=== PATIENT | male | born 1985 | race African-American/Black ===

== ENCOUNTER 2023-04-24 11:27 | Emergency (ER) | payer BC ==
[2023-04-24 13:26] LABS: #Eosinphils 0.2 10x3/uL (0.0-0.5); #Monocytes 0.4 10x3/uL (0.0-1.1); #Neutrophils 2.9 10x3/uL (1.5-8.4); %Basophils 0.4 % (0.0-2.0); %Eosinophils 3.1 % (0.0-6.0); %Lymphocytes 31.3 % (18.0-47.0); Hematocrit 41.6 % (38.8-50.0); Hemoglobin 13.3 g/dL (13.5-17.5); Mean Corpuscular Hemoglobin 27.8 pg (27.0-33.0); Mean Corpuscular Volume 86.8 fl (81.2-95.1); Mean Platelet Volume 9.2 fl (7.4-10.4); Platelet Count 360 10x3/uL (150-450); RBC Distribution Width 12.9 % (11.5-14.5); Red Blood Cell (RBC) Count 4.79 10x6/uL (4.32-5.72); White Blood Cell (WBC) Count 5.1 10x3/uL (3.5-10.5)
[2023-04-24] MEDS ORDERED: Aspirin 325 MG TAB ONE (13:29)
[2023-04-24 13:38] LABS: ALT (SGPT) 28 U/L (8-55); AST (SGOT) 37 U/L (5-34); Albumin 4.2 g/dL (3.5-5.0); Alkaline Phosphatase 83 U/L (40-110); Anion Gap 14 mmol/L (10-20); BUN (Urea Nitrogen) 11 mg/dL (8.9-20.6); Bilirubin, Total 0.3 mg/dL (0.2-1.2); Calc. Creatinine Clearance 0 mL/min (70-130); Calcium 9.6 mg/dL (7.8-10.44); Carbon Dioxide 23 mmol/L (22-29); Chloride 106 mmol/L (98-107); Estimated GFR 91; Globulin 3.7 g/dL (2.4-3.5); Glucose 165 mg/dL (70-105); Potassium 4.5 mmol/L (3.5-5.1); Protein, Total 7.9 g/dL (6.0-8.3); Sodium 138 mmol/L (136-145)
[2023-04-24 13:40] LABS: Troponin I Less than 0.010 ng/mL (< 0.028)
== END 2023-04-24 14:25 | disposition home or self-care (01) ==
LOC: CSHERS 11:27
DX: R07.9 Chest pain, unspecified (principal); M79.651 Pain in right thigh; E11.9 Type 2 diabetes mellitus without complications; I10 Essential (primary) hypertension
CPT/HCPCS: 71045; 80053; 84484; 85025; 93005